=== PATIENT | female | born 1975 | race Caucasian/White ===

== ENCOUNTER 2017-10-11 06:57 | Emergency (ER) | payer MEDICAID ==
[~2017-10-11] VITALS: Ht 162.6 cm; Wt 65.5 kg
[2017-10-11 07:08] VITALS: Ht 162.6 cm; Wt 65.5 kg
[2017-10-11] MEDS ORDERED: PSYL1WAF3 PO (07:37)
[2017-10-11] MEDS ORDERED: HYDR30CR75 PR (07:43)
--- NOTE | 2017-10-11 08:07 | ERD ---
ER Documentation Chief Complaint Chief Complaint possible rectal abscess, unable to sit HPI 42-year-old female complaining of pain in her rectum 3 days. Patient stated that she had a small mass in the area, the pain is worse when she is having a bowel movement. She was seen at [facility] at onset of the symptoms. I was told that she has hemorrhoid. She was given prescription of Preparation H cream and [place]. Patient stated that I had not resolve her issue, she knows her mass has gotten bigger. She is unable to sit because of pain. She did not have any bowel movements yesterday. Denies fever or chills. Denies drainage from the mass. ROS All systems reviewed and are negative except as per history of present illness. Medications Home Meds Active Scripts Hydrocortisone Acetate* (Anusol-HC*) 30 Gm Cream.gm., 1 APPLIC W[place] TID, #1 TUB Prov:TORRES MATT. NOVELTY TWISTER OPERATOR 10/11/17 Psyllium Seed (with Sugar) (Metamucil Fiber Wafer) 1 Each Wafer, 1 EACH PO DAILY , #30 WAFER Prov:TORRES MATT NOVELTY TWISTER OPERATOR 10/11/17 Allergies Allergies: Coded Allergies: No Known Allergy (Unverified , 08/23/14) PMhx/Soc Medical and Surgical Hx: pt denies Medical Hx, pt denies Surgical Hx History of Surgery: No Anesthesia Reaction: No Hx Neurological Disorder: No Hx Respiratory Disorders: No Hx Cardiac Disorders: No Hx Psychiatric Problems: No Hx Miscellaneous Medical Probl: Yes (DM) Hx Alcohol Use: No Hx Substance Use: No Hx Tobacco Use: No Physical Exam Vitals Vital Signs Date Time Temp Pulse Resp B/P Pulse Ox O2 Delivery O2 Flow Rate FiO2 10/11/17 07:08 98.2 87 18 123/78 98 Physical Exam General: Well-developed, well-nourished, conscious and coherent, in no distress Skin: Warm and dry without rash, good texture and turgor Head: Normocephalic without evidence of trauma Eyes: Sclera and conjunctivae normal; pupils equal, round, and reactive to light; extraocular movements are intact Chest: Normal AP diameter. Good expansion without retractions. Nontender. Lungs are clear to auscultate bilaterally with good tidal volume Heart: Regular rate and rhythm. No murmur, rub, or gallops heard Abdomen: Soft and nontender without masses, guarding, or rebound. Bowel sounds are active. No hepatosplenomegaly Back: Without spinal or CVA tenderness Pelvis: Nontender to palpation and stable to compression Rectal: Normal tone. There is a 1 cm sized external hemorrhoid noted on the posterior rectal wall, soft and tender to palpation. Extremities: Full range of motion. Good strength bilaterally. No clubbing, cyanosis, or edema. Peripheral pulses are intact. Sensation intact Neuro: Alert and oriented 4, GCS 15. Cranial nerves grossly intact. Motor and sensory exams nonfocal. Moves all extremities. Speech clear. Gait normal Procedures/MDM Well-appearing 42-year-old female presented ED with hemorrhoid 3 days. On exam , her hemorrhoids is soft, no sign of thrombosis. No sign of cellulitis or abscess. Patient is provided education on home care for hemorrhoids. Patient appears well, stable for discharge and outpatient management. Medical decision making shared with patient and family. Education provided to patient and family. Patient and family expressed understanding of the plan. Medications on discharge: Anusol cream, Metamucil. Follow-up: Primary care provider in 2-3 days or return to ED if worse. Disclaimer: Inadvertent spelling and grammatical errors are likely due to EHR/ dictation software use and do not reflect on the overall quality of patient care. Also, please note that the electronic time recorded on this note does not necessarily reflect the actual time of the patient encounter. Departure Diagnosis: Primary Impression: Hemorrhoid Hemorrhoid type: unspecified Qualified Code: K64.9 - Hemorrhoids, unspecified hemorrhoid type Condition: Stable Patient Instructions: Treating Hemorrhoids: Self-Care Referrals: [facility] () Usted se rivera hecho un examen mdico de control que le indica que no est en hermann condicin que requiera tratamiento urgente en el Departamento de Emergencia. Un estudio ms profundo y el tratamiento de jones condicin pueden esperar sin ningn riesgo hasta que usted sea atendida/o en el consultorio de jones mdico o hermann cl eusebia. Es responsabilidad suya arreglar hermann nikki para el seguimiento del benigno. MANEJO DE CONDICIONES NO URGENTES EN EL FUTURO 1) Si usted tiene un mdico de atencin primaria: Usted debera llamar a jones mdico de atencin primaria antes de venir al departamento de emergencia. Despus de las horas de consultorio, jones doctor o jones asociado/a est disponible por telfono. El mdico o enfermero de janie en el servicio telefnico puede asesorarle por alia medio para atender el problema, o benigno contrario se puede programar hermann nikki. 2) Si usted no tiene un mdico de atencin primaria: Llame al mdico o clnica de referencia que aparece abajo mateo las horas de consultorio para hacer hermann nikki para que le vean. CLINICAS: [facility] [phone] [facility] [address] [facility] [phone] [facility] [phone] [address] [facility] [phone] [address] [facility]. [facility] [phone] [address] [facility] [phone] [address] Additional Instructions: Llame al doctor MAANA y darlene hermann NIKKI PARA DENTRO DE 2-3 MORENO.Dgale a la secretaria que nosotros le instruimos hacer esta nikki.Avise o llame si jones condicin se empeora antes de la nikki. Regresa aqui si peor o no mejor. TORRES MATT NP Oct 11, 2017 08:07
== END 2017-10-11 07:58 | disposition home or self-care (01) ==
LOC: FTE 06:57
DX: K64.9 Unspecified hemorrhoids (principal); E11.9 Type 2 diabetes mellitus without complications
CPT/HCPCS: 99283

== ENCOUNTER 2018-06-17 14:59 | Emergency (ER) | END 2018-06-17 16:12 | disposition home or self-care (01) ==

== ENCOUNTER 2018-06-18 21:17 | Emergency (ER) | END 2018-06-19 00:38 | disposition home or self-care (01) ==

== ENCOUNTER 2018-06-20 13:56 | Emergency (ER) | END 2018-06-20 16:24 | disposition home or self-care (01) ==

== ENCOUNTER 2018-06-22 13:13 | Emergency (ER) | END 2018-06-22 14:41 | disposition home or self-care (01) ==